=== PATIENT | female | born 1955 | race Caucasian/White ===

== ENCOUNTER 2022-07-09 07:00 | Outpatient (CLI) | payer MEDICARE ==
--- NOTE | 2022-07-09 11:35 | XRAY Report ---
PROCEDURE: Finger(s) LT INDICATIONS: LEFT PINKY FINGER LACERATION TECHNIQUE: AP hand, 2 views of the fifth finger(s) acquired. COMPARISON: None. FINDINGS: Bones: Acute to subacute appearing fracture through mid shaft of fifth distal phalanx is seen with v olar displacement at fracture site and up to 2 mm overlapping. No other fracture or dislocation No akins spicious bony lesions. Soft tissues: No suspicious soft tissue calcifications or masses. IMPRESSION: Acute displaced fifth distal phalangeal shaft fracture as above. Reviewed by: Elio Ames MD on 07/09/2022 11:33 AM PDT Approved by: Elio Ames MD on 07/09/2022 11:33 AM PDT Station ID: [id number]
== END 2022-07-09 23:59 | disposition home or self-care (01) ==
LOC: DI.S 07:00
PROVIDERS: ATTEND Physician Assistant Medical
DX: S62.637B Displaced fracture of distal phalanx of left little finger, initial encounter for open fracture (principal)